=== PATIENT | female | born 1945 | race Caucasian/White ===

== ENCOUNTER 2021-02-16 19:39 | Emergency (ER) | payer OTHER ==
[2021-02-16 19:45] VITALS: BP 127/83; PULSE 64; TEMP 98.6; BMI 20.7
[2021-02-16] MEDS ORDERED: ACETAMINOPHEN 1000 MG/100 ML VIAL IVPB ONE (22:26)
[2021-02-16] MEDS ORDERED: LACTATED RINGERS SOLUTION 1000 ML INFUS.BAG IV ONE (22:26)
[2021-02-16 22:28] LABS: BASO % 0.9 % (0-2.0); EOS % 1.9 % (0-4.5); HEMATOCRIT 31.1 % (32.4-45.2); HEMOGLOBIN 10.4 GM/dL (10.7-15.3); LYMPH % 27.3 % (8-40); MCH 28.6 pg (25.7-33.7); MCHC 33.4 g/dl (32.0-36.0); MEAN CELL VOLUME 85.6 fl (80-96); MEAN PLT VOLUME 7.2 fl (7.5-11.1); MONO % 11.5 % (3.8-10.2); NEUT % 58.4 % (42.8-82.8); PLATELET COUNT 284 10^3/uL (134-434); RBC 3.63 M/mm3 (3.60-5.2); WHITE BLOOD COUNT 5.9 K/mm3 (4.0-10.0)
[2021-02-16] MEDS ORDERED: ACETAMINOPHEN INJECTION 100 ML IVPB ONE (22:36)
[2021-02-16 22:42] LABS: EPI CELLS 5 /uL (0-25.1); HYALINE CASTS 0 /uL (0-3.1); PH,URINE 5.5 (5.0-8.0); URINE APPEARANCE CLEAR; URINE BACTERIA 37 /uL (0-1359); URINE BILIRUBIN NEGATIVE (NEGATIVE); URINE COLOR YELLOW; URINE GLUCOSE (UA) NEGATIVE (NEGATIVE); URINE KETONE NEGATIVE (NEGATIVE); URINE LEUK ESTERASE NEGATIVE (NEGATIVE); URINE NITRITE NEGATIVE (NEGATIVE); URINE PROTEIN NEGATIVE (NEGATIVE); URINE RBC 30 /uL (0-23.9); URINE UROBILINOGEN 0.2 mg/dL (0.2-1.0); URINE WBC 3 /uL (0-25.8)
[2021-02-16 22:50] LABS: BLOOD UREA NITROGEN 10.9 mg/dL (7-18); CALCIUM 8.2 mg/dL (8.5-10.1); MAGNESIUM 2.2 mg/dL (1.8-2.4)
[2021-02-16 22:53] LABS: CREATININE 0.5 mg/dL (0.55-1.3)
[2021-02-16 22:55] LABS: BILIRUBIN,TOTAL 0.4 mg/dL (0.2-1); TOT PROT 7.2 g/dl (6.4-8.2)
== END 2021-02-17 02:08 | disposition home or self-care (01) ==
LOC: JER 19:39
PROC: 3E033GC Introduction of Other Therapeutic Substance into Peripheral Vein, Percutaneous Approach (ICD-10-PCS; principal; 2021-02-16)
DX: R19.7 Diarrhea, unspecified (principal); R10.30 Lower abdominal pain, unspecified
CPT/HCPCS: 36415; 74177-TC; 80053; 81003; 83605; 83735; 85025; 87086; 96374; 99285-25; J0131; Q9967

== ENCOUNTER 2022-09-16 23:45 | Emergency (ER) | payer OTHER ==
[2022-09-16 23:52] VITALS: BP 139/54; PULSE 95; RESP 18; BMI 19.0
[2022-09-17 00:43] LABS: BASO % 0.2 % (0-2.0); EOS % 0.5 % (0-4.5); HEMATOCRIT 31.2 % (32.4-45.2); HEMOGLOBIN 10.5 GM/dL (10.7-15.3); LYMPH % 15.2 % (8-40); MCH 29.4 pg (25.7-33.7); MCHC 33.7 g/dl (32.0-36.0); MEAN CELL VOLUME 87.3 fl (80-96); MEAN PLT VOLUME 6.7 fl (7.5-11.1); MONO % 11.3 % (3.8-10.2); NEUT % 72.8 % (42.8-82.8); PLATELET COUNT 329 10^3/uL (134-434); RBC 3.57 M/mm3 (3.60-5.2); RDW 13.6 % (11.6-15.6); WHITE BLOOD COUNT 8.4 K/mm3 (4.0-10.0)
[2022-09-17] MEDS: ALBUTEROL SO4 2.5/IPRATROPIUM 0.5 INH SOL 3 ML VIAL.NEB. NEB SCH ×4 (00:59→01:47)
[2022-09-17] MEDS ORDERED: ALBUTEROL SO4 2.5/IPRATROPIUM 0.5 INH SOL 3 ML VIAL.NEB. NEB ONE (01:05)
[2022-09-17 01:06] LABS: CALCIUM 8.2 mg/dL (8.5-10.1)
[2022-09-17 01:07] LABS: BLOOD UREA NITROGEN 9.5 mg/dL (7-18); MAGNESIUM 2.3 mg/dL (1.8-2.4)
[2022-09-17 01:10] LABS: CREATININE 0.4 mg/dL (0.55-1.3)
[2022-09-17 01:12] LABS: BILIRUBIN,TOTAL 0.2 mg/dL (0.2-1); TOT PROT 7.4 g/dl (6.4-8.2)
== END 2022-09-17 03:34 | disposition home or self-care (01) ==
LOC: JER 23:45
PROC: 3E0F7GC Introduction of Other Therapeutic Substance into Respiratory Tract, Via Natural or Artificial Opening (ICD-10-PCS; principal; 2022-09-16)
DX: R05.1 Acute cough (principal); J18.9 Pneumonia, unspecified organism; Z20.822 Contact with and (suspected) exposure to COVID-19
CPT/HCPCS: 0241U-QW; 36415; 71046-TC-FY; 71250-TC; 80053; 83735; 85025; 99285-25

== ENCOUNTER 2024-09-14 00:22 | Emergency (ER) | payer OTHER ==
[2024-09-14 00:32] VITALS: BP 151/63; RESP 18; BMI 22.8
[2024-09-14] MEDS ORDERED: ACETAMINOPHEN INJECTION 100 ML ONE (00:54)
[2024-09-14 00:58] LABS: VENOUS BASE EXCESS 1.8 mmol/L (-2-2); VENOUS O2 SATURATION 39.3 % (70-80); VENOUS PCO2 42.9 mmHg (38-52); VENOUS PH 7.412 (7.310-7.410)
[2024-09-14] MEDS: SODIUM CHLORIDE 0.9% 500 ML INFUS.BAG IV ONE (00:59)
[2024-09-14] MEDS: ACETAMINOPHEN 1000 MG/100 ML BAG IVPB ONE (00:59)
[2024-09-14 01:06] LABS: INR 1.04 (0.83-1.09); PROTHROMBIN TIME (PATIENT) 11.4 SEC (9.7-13.0)
[2024-09-14 01:09] LABS: ACTIVATED PTT 31.8 SECONDS (25.2-36.5)
[2024-09-14 01:19] LABS: HEMATOCRIT 33.8 % (32.4-45.2); HEMOGLOBIN 10.9 GM/dL (10.7-15.3); MCH 26.2 pg (25.7-33.7); MCHC 32.2 g/dl (32.0-36.0); MEAN CELL VOLUME 81.4 fl (80-96); MEAN PLT VOLUME 7.2 fl (7.5-11.1); PLATELET COUNT 371 10^3/uL (134-434); RBC 4.16 M/mm3 (3.60-5.2); RDW 13.9 % (11.6-15.6); WHITE BLOOD COUNT 14.1 K/mm3 (4.0-10.0)
[2024-09-14 01:26] LABS: POTASSIUM 4.2 mmol/L (3.5-5.1)
[2024-09-14 01:28] LABS: ALBUMIN 3.4 g/dl (3.4-5.0); BLOOD UREA NITROGEN 12.4 mg/dL (7-18); CALCIUM 8.9 mg/dL (8.5-10.1)
[2024-09-14 01:31] LABS: CREATININE 0.6 mg/dL (0.55-1.3)
[2024-09-14 01:33] LABS: BILIRUBIN,TOTAL 0.3 mg/dL (0.2-1); TOT PROT 7.5 g/dl (6.4-8.2)
[2024-09-14 02:14] LABS: EPI CELLS 7 /uL (0-25.1); HYALINE CASTS 0 /uL (0-3.1); URINE APPEARANCE CLEAR; URINE BACTERIA 137 /uL (0-1359); URINE BILIRUBIN NEGATIVE (NEGATIVE); URINE COLOR YELLOW; URINE GLUCOSE (UA) NEGATIVE (NEGATIVE); URINE KETONE NEGATIVE (NEGATIVE); URINE LEUK ESTERASE TRACE (NEGATIVE); URINE NITRITE NEGATIVE (NEGATIVE); URINE PROTEIN NEGATIVE (NEGATIVE); URINE RBC 55 /uL (0-23.9); URINE UROBILINOGEN 0.2 mg/dL (0.2-1.0); URINE WBC 16 /uL (0-25.8)
[2024-09-14 03:00] LABS: ANISOCYTOSIS 1+; MACROCYTOSIS 0
[2024-09-14 03:32] VITALS: PULSE 85; TEMP 99.1
== END 2024-09-14 03:58 | disposition home or self-care (01) ==
LOC: JER 00:22
PROC: 3E033NZ Introduction of Analgesics, Hypnotics, Sedatives into Peripheral Vein, Percutaneous Approach (ICD-10-PCS; principal; 2024-09-14)
DX: U07.1 COVID-19 (principal); R50.9 Fever, unspecified; R00.0 Tachycardia, unspecified; R25.1 Tremor, unspecified
CPT/HCPCS: 0241U-QW; 36415; 71045-TC-FY; 80053; 81003; 82803; 83605; 84484; 85025; 85610; 85730; 86850; 86900; 86901; 87040; 87086; 93005; 93010; 99285-25; J0131